=== PATIENT | female | born 1970 | race Two or more races ===

== ENCOUNTER → 2016-10-03 | Outpatient (CLI) | payer MEDICAID | LOC: WI 13:22 | PROVIDERS: ATTEND Physician Assistant | DX: Z12.31 Encounter for screening mammogram for malignant neoplasm of breast (principal); N63 Unspecified lump in breast | CPT/HCPCS: 77067; G0202 ==

== ENCOUNTER → 2016-11-01 | Outpatient (CLI) | payer MEDICAID | LOC: WI 13:30 | PROVIDERS: ATTEND Physician Assistant | DX: N63 Unspecified lump in breast (principal) | CPT/HCPCS: 77066; G0204 ==

== ENCOUNTER → 2017-03-14 | Outpatient (CLI) | payer OTHER ==
--- NOTE | 2017-03-14 10:34 | RADIOLOGY REPORT (SQ) ---
EXAM DESCRIPTION: L SPINE 2 VIEWS COMPLETED DATE/TIME: 03/14/2017 10:23 am REASON FOR STUDY: NEUROPATHY OF LEFT LEG COMPARISON: None. NUMBER OF VIEWS: Two views. TECHNIQUE: AP and lateral radiographic images acquired of the lumbar spine. LIMITATIONS: None. FINDINGS: MINERALIZATION: Normal. SEGMENTATION: Normal. No transitional anatomy. ALIGNMENT: There is significant levoscoliosis in the upper lumbar spine and dextroscoliosis in the mi d thoracic spine. VERTEBRAE: Maintained height. No fracture or worrisome bone lesion. DISCS: There is mild narrowing of the L4-5 disc space. POSTERIOR ELEMENTS: Hypertrophic facet changes are present from L4-S1. HARDWARE: None in the spine. PARASPINAL SOFT TISSUES: Normal. PELVIS: Intact as visualized. No fractures or worrisome bone lesions. SI joints intact. OTHER: No other significant finding. IMPRESSION: Scoliosis, mild degenerative disc changes, and facet arthropathy. TECHNICAL DOCUMENTATION: JOB ID: [id number] [employer]- All Rights Reserved
--- NOTE | 2017-03-14 10:35 | RADIOLOGY REPORT (SQ) ---
EXAM DESCRIPTION: SHOULDER RIGHT 2 OR MORE VIEWS COMPLETED DATE/TIME: 03/14/2017 10:23 am REASON FOR STUDY: NEUROPATHY OF R ARM COMPARISON: None. NUMBER OF VIEWS: Three views. TECHNIQUE: Internal rotation, external rotation, and Y view images acquired of the right shoulder. LIMITATIONS: None. FINDINGS: MINERALIZATION: Normal. BONES: No acute fracture or dislocation. No worrisome bone lesions. JOINTS: No dislocation. VISUALIZED LUNGS AND RIBS: No pneumothorax. No rib fracture. SOFT TISSUES: No radiopaque foreign body. OTHER: No other significant finding. IMPRESSION: NEGATIVE STUDY OF THE RIGHT SHOULDER. NO RADIOGRAPHIC EVIDENCE OF ACUTE INJURY. TECHNICAL DOCUMENTATION: JOB ID: [id number] [employer]- All Rights Reserved
== END ==
LOC: RAD 09:56
PROVIDERS: ATTEND Thoracic Surgery (Cardiothoracic Vascular Surgery)
DX: G57.92 Unspecified mononeuropathy of left lower limb (principal); G57.91 Unspecified mononeuropathy of right lower limb; G56.91 Unspecified mononeuropathy of right upper limb; F32.9 Major depressive disorder, single episode, unspecified
CPT/HCPCS: 72100

== ENCOUNTER 2018-05-01 15:06 | Emergency (ER) | payer MEDICAID ==
[2018-05-01] MEDS ORDERED: FENTANYL CITRATE INJ/PF 100 MCG/2 ML AMPUL IV ONE ×2 (15:33→17:59)
[2018-05-01] MEDS ORDERED: PIPERACILLIN/TAZOBACTAM 3.375 GM VIAL IV ONE (15:38)
[2018-05-01] MEDS ORDERED: VANCOMYCIN HCL INJ 1000 MG VIAL IV ONE (15:38)
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
--- NOTE | 2018-05-01 16:30 | PDOC CONSULTATION ---
Consultation Consult Date: 05/01/18 Consult reason:: patient found unresponsive at home her body covered by maggots History of Present Illness Admission Date/PCP: CURLY COPELAND PA-C Patient complains of: unresponsive History of Present Illness: EFRAÍN DENNISON is a 48 year old female who is known to be an alcoholic with COPD found by her friend at home unresponsive slumped on a couch likely for a few days. Brought to ED by EMT.Patient had BS of 50 and given IV D10 W with obtaining somw response in the ED. Patient is being given a shower by nurses and maggots are being removed.. Past Medical History Pulmonary Medical History: Reports: Chronic Obstructive Pulmonary Disease (COPD) Past Surgical History Past Surgical History: Reports: Tonsillectomy, Tubal Ligation Social History Lives with: Alone Smoking Status: Current Every Day Smoker Frequency of Alcohol Use: Heavy Family History Family History: Reviewed & Not Pertinent Parental Family History Reviewed: No Children Family History Reviewed: No Sibling(s) Family History Reviewed.: No Medication/Allergy Allergies/Adverse Reactions: aspirin [Aspirin] Allergy (Verified 05/01/18 17:05) Review of Systems ROS unobtainable: Due to mental status Physical Exam General appearance: PRESENT: disheveled, mild distress Head exam: PRESENT: atraumatic Eye exam: PRESENT: conjunctiva pink Mouth exam: PRESENT: dry mucosa Neck exam: PRESENT: full ROM Respiratory exam: PRESENT: clear to auscultation maria c Cardiovascular exam: PRESENT: RRR Pulses: PRESENT: normal radial pulses Vascular exam: PRESENT: normal capillary refill GI/Abdominal exam: PRESENT: soft Torso Front/Back Image: 1 - extensive erythema with severe pains on extending right arm 2 - Severe extensive erythema left axulla with pains on extension left arm. Apparently patient had maggots on both axillae 3 - erythema on both groins with maggots prior to being given shower by nurses 4 - erythema on the left groin with maggots prior to shower 5 - Pressure sores on left trochanteric area unstageable with surrounding erythema 6 - pressure sore right trochanteric area stage 2 with erythema Extremities exam: PRESENT: other - multiple areas of contusion on all extremities Neurological exam: PRESENT: altered Skin exam: PRESENT: erythema, rash - Bilateral axillae and groins Results Laboratory Results: 05/01/18 14:50 05/01/18 14:50 05/01/18 05/01/18 14:50 14:50 WBC Cancelled RBC Cancelled Hgb Cancelled Hct Cancelled MCV Cancelled MCH Cancelled MCHC Cancelled RDW Cancelled Plt Count Cancelled Seg Neutrophils % Cancelled Lymphocytes % Cancelled Monocytes % Cancelled Eosinophils % Cancelled Basophils % Cancelled Absolute Neutrophils Cancelled Absolute Lymphocytes Cancelled Absolute Monocytes Cancelled Absolute Eosinophils Cancelled Absolute Basophils Cancelled Sodium Cancelled Potassium Cancelled Chloride Cancelled Carbon Dioxide Cancelled Anion Gap Cancelled BUN Cancelled Creatinine Cancelled Est GFR ( Amer) Cancelled Est GFR (Non-Af Amer) Cancelled Glucose Cancelled Calcium Cancelled Total Bilirubin Cancelled AST Cancelled ALT Cancelled Alkaline Phosphatase Cancelled Total Protein Cancelled Albumin Cancelled Lipase Cancelled 05/01/18 05/01/18 14:50 14:50 Creatine Kinase Cancelled CK-MB (CK-2) Cancelled Troponin I Cancelled Assessment & Plan - Diagnosis (1) cellulitis both axillae and both groins Is this a current diagnosis for this admission?: Yes (2) pressure sores on both hips and sacral a Is this a current diagnosis for this admission?: Yes (3) COPD (chronic obstructive pulmonary disease) Qualifiers: COPD type: unspecified COPD Qualified Code(s): J44.9 - Chronic obstructive pulmonary disease, unspecified Is this a current diagnosis for this admission?: Yes (4) Heavy alcohol use Is this a current diagnosis for this admission?: Yes - Time Time Spent: 30 to 50 Minutes - Plan Summary Plan Summary: Has extensive 2nd degree fung like lesions on both axillae and both groins. I believe patient should be in a burn center to avoid contractures on top of management of altered mental status. Also has unstageable pressure sores on her buttocks Also, intubated and hypotensive on pressors
[2018-05-01 17:01] LABS: APPEARANCE,URINE CLOUDY; BILIRUBIN,URINE SMALL (NEGATIVE); COLOR,URINE AMBER; GLUCOSE, URINE NEGATIVE (NEGATIVE); KETONES,URINE 20 mg/dL (NEGATIVE); LEUKOCYTE ESTERASE,URINE LARGE (NEGATIVE); NITRITE,URINE NEGATIVE (NEGATIVE); PROTEIN,URINE 30 mg/dL (NEGATIVE); URINE SPECIFIC GRAVITY 1.013
[2018-05-01] MEDS ORDERED: RINGERS SOLUTION,LACTATED 1,000 ML IV ONE ×2 (17:10→18:07)
[2018-05-01] MEDS ORDERED: NORMAL SALINE 1000 ML 1,000 ML IV ONE (17:10)
[2018-05-01 17:19] LABS: URINE AMPHETAMINES SCREEN NEGATIVE; URINE BARBITURATES SCREEN NEGATIVE; URINE BENZODIAZEPINES SCREEN NEGATIVE; URINE COCAINE SCREEN NEGATIVE; URINE MARIJUANA (THC) SCREEN NEGATIVE; URINE METHADONE SCREEN NEGATIVE; URINE PHENCYCLIDINE SCREEN NEGATIVE
[2018-05-01] MEDS: NORMAL SALINE 1000 ML 1,000 ML IV PRN ×2 (17:24→18:39)
[2018-05-01 17:29] LABS: TROPONIN I < 0.012 ng/mL
[2018-05-01] MEDS ORDERED: NOREPINEPHRINE BITARTRATE INJ/PF 4 MG/4 ML SDV IV ONE ×2 (17:33→17:44)
[2018-05-01] MEDS ORDERED: DEXTROSE 5%-WATER 250 ML with NOREPINEPHRINE BITARTRATE 4 MG IV PRN ×2 (17:34)
[2018-05-01 17:41] LABS: HEMATOCRIT 20.1 % (36.0-47.0); MEAN CORPUSCULAR HEMOGLOBIN 33.2 pg (27.0-33.4); MEAN CORPUSCULAR HGB CONC 35.3 g/dL (32.0-36.0); MEAN CORPUSCULAR VOLUME 94 fl (80-97); RED BLOOD COUNT 2.14 10^6/uL (3.72-5.28); RED CELL DISTRIBUTION WIDTH 14.2 % (11.5-14.0); WHITE BLOOD COUNT 2.5 10^3/uL (4.0-10.5)
[2018-05-01 17:47] LABS: PLATELET COUNT 34 10^3/uL (150-450)
[2018-05-01] MEDS ORDERED: ETOMIDATE INJ/PF 20 MG/10 ML SDV IV ONE ×2 (17:47→18:44)
[2018-05-01 17:50] LABS: ALANINE AMINOTRANSFERASE 35 U/L (9-52); ALBUMIN 1.4 g/dL (3.5-5.0); ALKALINE PHOSPHATASE 78 U/L (38-126); ANION GAP 15 (5-19); ASPARTATE AMINO TRANSFERASE 85 U/L (14-36); BILIRUBIN,DIRECT 0.5 mg/dL (0.0-0.4); BILIRUBIN,TOTAL 0.8 mg/dL (0.2-1.3); BLOOD UREA NITROGEN 22 mg/dL (7-20); CALCIUM 7.1 mg/dL (8.4-10.2); CHLORIDE 98 mmol/L (98-107); CREATINE KINASE 958 U/L (30-135); GLUCOSE 115 mg/dL (75-110); LIPASE 1791.6 U/L (23-300); SODIUM 122.8 mmol/L (137-145); TOTAL PROTEIN 3.5 g/dL (6.3-8.2)
[2018-05-01 17:50] LABS: ABSOLUTE LYMPHOCYTES# (MANUAL) 0.2 10^3/uL (0.5-4.7); ABSOLUTE NEUTROPHILS# (MANUAL) 2.3 10^3/uL (1.7-8.2); ANISOCYTOSIS SLIGHT; BAND NEUTROPHILS % (MANUAL) 8 % (3-5); BASOPHILS % (MANUAL) 0 % (0-2); EOSINOPHILS % (MANUAL) 0 % (0-6); LYMPHOCYTES % (MANUAL) 8 % (13-45); METAMYELOCYTES % (MANUAL) 2 % (0); MONOCYTES % (MANUAL) 0 % (3-13); NUCLEATED RED BLOOD CELLS 2 /100 WBC (0); SEGMENTED NEUTROPHILS % (MAN) 82 % (42-78); TOTAL CELLS COUNTED 100
[2018-05-01 17:51] LABS: PLATELET CLUMPS PRESENT; PLATELET COMMENT DECREASED
[2018-05-01 17:53] LABS: HEMOGLOBIN 7.1 g/dL (12.0-15.5)
[2018-05-01 17:57] LABS: ACETAMINOPHEN < 10 ug/mL (10-30); ALCOHOL < 10 mg/dL (NONE DETECTED); SALICYLATE < 1.0 mg/dL (2.0-20.0)
[2018-05-01] MEDS ORDERED: FENTANYL CITRATE INJ/PF 100 MCG/2 ML AMPUL ONE (17:57)
[2018-05-01] MEDS ORDERED: ONDANSETRON HCL INJ/PF 4 MG/2 ML SDV ONE (18:00)
[2018-05-01] MEDS ORDERED: ONDANSETRON HCL INJ/PF 4 MG/2 ML SDV IV ONE (18:07)
[2018-05-01 18:11] LABS: CARBON DIOXIDE 10 mmol/L (22-30); POTASSIUM 2.6 mmol/L (3.6-5.0)
[2018-05-01] MEDS ORDERED: PROPOFOL 1,000 MG/100 ML INFUS..BTL IV ONE (18:24)
[2018-05-01] MEDS ORDERED: SODIUM BICARBONATE 4.2% INJ (2.5 MEQ/5 ML) VIAL INJ ONE (18:25)
[2018-05-01] MEDS ORDERED: VANCOMYCIN HCL INJ 1000 MG VIAL ONE (18:41)
[2018-05-01] MEDS ORDERED: PROPOFOL 1,000 MG/100 ML INFUS..BTL IV PRN (18:45)
--- NOTE | 2018-05-01 19:07 | EKG REPORT ---
SEVERITY:- ABNORMAL ECG - SINUS RHYTHM ATRIAL PREMATURE COMPLEX FIRST DEGREE AV BLOCK BORDERLINE T ABNORMALITIES, ANT-LAT LEADS ST ELEVATION : BORDERLINE AND NON SPECIFIC : Confirmed by: Alma Delia Mendez MD 01-May-2018 19:07:10
[2018-05-01] MEDS ORDERED: SODIUM BICARBONATE 8.4% INJ 50 MEQ/50 ML DISP.SYRIN IV ONE (19:09)
--- NOTE | 2018-05-01 19:09 | RADIOLOGY REPORT (SQ) ---
EXAM DESCRIPTION: CHEST SINGLE VIEW COMPLETED DATE/TIME: 05/01/2018 6:35 pm REASON FOR STUDY: ET TUBE PLACEMENT COMPARISON: 04/30/2016 EXAM PARAMETERS: NUMBER OF VIEWS: One view. TECHNIQUE: Single frontal radiographic view of the chest acquired. RADIATION DOSE: NA LIMITATIONS: None. FINDINGS: LUNGS AND PLEURA: Right basilar consolidation -effusion. Small area of airspace opacity in the left lung base. No pneumothorax. . MEDIASTINUM AND HILAR STRUCTURES: Stable. HEART AND VASCULAR STRUCTURES: Stable. BONES: No acute findings. HARDWARE: Endotracheal tube tip is 4.3 cm above the level of the magdiel. Enteric catheter is present with tip overlying the body of the stomach. OTHER: No other significant finding. IMPRESSION: Right basilar consolidation -effusion. Small area of airspace opacity in the left lung base. Endotracheal tube tip is 4.3 cm above the level of the magdiel. Enteric catheter is present wi th tip overlying the body of the stomach. TECHNICAL DOCUMENTATION: JOB ID: [id number] [place]-[id number] 2010 [employer]- All Rights Reserved Reading location - IP/workstation name: [email or web address]
--- NOTE | 2018-05-01 19:29 | RADIOLOGY REPORT (SQ) ---
EXAM DESCRIPTION: CHEST SINGLE VIEW COMPLETED DATE/TIME: 05/01/2018 7:12 pm REASON FOR STUDY: CENTRAL LINE COMPARISON: 05/01/2018 EXAM PARAMETERS: NUMBER OF VIEWS: One view. TECHNIQUE: Single frontal radiographic view of the chest acquired. RADIATION DOSE: NA LIMITATIONS: None. FINDINGS: LUNGS AND PLEURA: Marked opacification in the right base. Decreased volume in the right l nguyễn. Patchy opacification in the left base. MEDIASTINUM AND HILAR STRUCTURES: No masses. Contour normal. HEART AND VASCULAR STRUCTURES: Heart size is borderline. BONES: No acute findings. HARDWARE: Endotracheal tube has its tip 5 cm above the magdiel. An NG tube extends to the stomach. OTHER: Catheter is present on the right. The tip of the catheter is in the superior vena cava. IMPRESSION: Right pleural effusion. Possible right lower lobe atelectasis or consolidation. Cannot exclude limited left lower lobe pneumonia. Catheter placement as described. No pneumothorax. TECHNICAL DOCUMENTATION: JOB ID: [id number] 1894 [employer]- All Rights Reserved Reading location - IP/workstation name: [email or web address]
[2018-05-01] MEDS: POTASSI CL 20 MEQ/50 ML RIDER 20 MEQ/50 ML RTUPB IV SCH (20:55)
[2018-05-01 21:15] VITALS: BP 89/71
[2018-05-01 21:16] LABS: ARTERIAL BLOOD H2CO3 0.65 mmol/L (1.05-1.35); ARTERIAL BLOOD HCO3 10.4 mmol/L (20-24); ARTERIAL BLOOD O2 SATURATION 89.6 % (94-98); ARTERIAL BLOOD PCO2 21.5 mmHg (35-45); ARTERIAL BLOOD PO2 60.7 mmHg (80-100)
[2018-05-01 21:18] LABS: ARTERIAL BLOOD FIO2 50%
[2018-05-01] MEDS ORDERED: DEXTROSE 5%-WATER 250 ML with VASOPRESSIN 100 UNIT IV PRN ×2 (21:37)
[2018-05-01] MEDS ORDERED: VASOPRESSIN INJ 20 UNIT/1 ML VIAL ONE (21:39)
[2018-05-02] MEDS: POTASSI CL 20 MEQ/50 ML RIDER 20 MEQ/50 ML RTUPB IV SCH (00:44)
--- NOTE | 2018-05-02 07:56 | OPERATIVE REPORT E ---
Operative Report NAME: EFRAÍN DENNISON : 1970 AGE: 48Y DATE OF SURGERY: 05/01/2018 ROOM: PREOPERATIVE DIAGNOSIS: Patient with poor veins and needed pressors and poor central line. POSTOPERATIVE DIAGNOSIS: Patient with poor veins and needed pressors and poor central line. PROCEDURE: Placement of right internal jugular vein triple lumen catheter under ultrasound guidance. SURGEON: RONALD LEGER M.D. ANESTHESIA: Local. DESCRIPTION OF PROCEDURE: The patient was placed in the slight Trendelenburg position and the right neck prepped and draped in the usual sterile fashion. With the use of the ultrasound, the right internal jugular vein was then identified and the skin over it was anesthetized. It was then punctured and the guidewire passed through the needle towards the area of the superior vena cava and the puncture site dilated. A triple lumen catheter inserted through the guidewire and up to about 17 cm. It was subsequently anchored to the skin with 3-0 silk. All the 3 ports aspirated blood easily and instilled saline easily. A Biopatch placed at the insertion site and a transparent sterile dressing placed over the Biopatch and catheter. The patient tolerated the procedure well. Chest x-ray will be obtained for placement. DICTATING PHYSICIAN: RONALD LEGER M.D. [id number] PHY#: [id number] ID: [id number] JOB#: [id number] ACCT: [id number] cc:RONALD LEGER M.D. >
== END 2018-05-01 21:45 | disposition short-term general hospital (02) ==
LOC: ER 15:06
DX: L89.40 Pressure ulcer of contiguous site of back, buttock and hip, unspecified stage (principal); T68.XXXA Hypothermia, initial encounter; E87.6 Hypokalemia; E86.0 Dehydration; D72.825 Bandemia; A41.9 Sepsis, unspecified organism; J44.9 Chronic obstructive pulmonary disease, unspecified; K85.90 Acute pancreatitis without necrosis or infection, unspecified; R41.82 Altered mental status, unspecified; D64.9 Anemia, unspecified; F17.200 Nicotine dependence, unspecified, uncomplicated
CPT/HCPCS: 93005; 99291; 96361; 51702; 96375; 96365; 96366; 96367; 96368; 86900; 86901; 36415; 87040; 87086; 82553; 36430; 86850; 80307 ×4; 82803; 82550; 83690; 85025; 87077; 87088; 80053; 81001; 84484; 87186; 86920; 83605; 71045; 93010; C1751; P9016; J3010; J2704; J3490 ×3; J2405; J3480; J7060; J7030; J7120; J3370; J2543